=== PATIENT | male | born 1955 | race Caucasian/White ===

== ENCOUNTER 2016-04-22 11:52 | Emergency (ER) | payer OTHER ==
[~2016-04-22] VITALS: Ht 193 cm; Wt 88.5 kg
[~2016-04-22 11:52] MED LIST: CIPRO 500MG TA500 MG PO; LEVSIN 0.1250.125 MG PO; ZOFRAN ODT4 MG PO
--- NOTE | 2016-04-22 12:53 | ED HEADACHE COMPLAINT ---
History of Present Illness General Chief Complaint: Headache Stated Complaint: HEADACHE Source: patient, old records Exam Limitations: no limitations Vital Signs & Intake/Output Vital Signs & Intake/Output Vital Signs Date Time Temp Pulse Resp B/P Pulse O2 O2 Flow FiO2 Ox Delivery Rate 04/22 1445 76 152/92 04/22 1400 152/92 04/22 1335 Room Air 04/22 1334 78 16 168/104 98 Room Air 04/22 1201 98.7 97 18 191/99 99 Room Air Room Air Allergies Coded Allergies: NO KNOWN ALLERGIES (11/11/14) Reconcile Medications Butalb/Acetaminophen/Caffeine (Fioricet 50-300-40 MG Capsule) 50 MG-300 MG-40 MG CAPSULE 1 TAB PO Q6HR PRN HEADACHE Labetalol HCl 100 MG TABLET 1 TAB PO ONCE htn Triage Note: TRIAGE: 61 Y/O MALE PRESENTS C/O "SEVERE HEADACHES" S/P SKIING IN [place]. "I THOUGHT IT COULD HAVE BEEN FROM THE ALTITUDE. I DRANK A TON OF WATER AND THE DEHYDRATION AND CRAMPS WENT AWAY. BUT THE HEADACHE DIDN'T GO AWAY." HEADACHE SINCE SUNDAY. LAST DOSE OF MOTRIN: YESTERDAY. "WITH LIGHTS TURNED OFF, EASIER TO TALK." Triage Nurses Notes Reviewed? yes Onset: Abrupt Duration: day(s): (5), constant, waxing and waning Timing: recent history Quality/Severity: moderate, achy, constant, pressure Severity Numbers: 7 Head Injury Location: global No Modifying Factors: none Associated Symptoms: muscle cramps HPI: 61-year-old male with no medical history presents complaining of intermittent waxing and waning bilateral generalized headache that has been present for the past 5 days after he returned home from [place]. The patient states that while he was there he believes he is getting sick from the altitude difference and drinking and skiing. He states that he was drinking plenty of fluids and taking Advil with improvement in his symptoms. He states that his body cramps and dry mouth have resolved however the headaches persist. There is no recent fall or head trauma. He denies history of similar headaches in the past. He reports positive photosensitivity. He describes the headaches as feeling as though his ears have to pop however they have not. He denies any tinnitus or vision or hearing changes. He denies any neck stiffness or pain no fever no chills no chest pain or shortness of breath. His last dose of Advil was yesterday. He states that it helps for a time however the headaches return. Patient is known to be hypertensive in triage she states he's never been diagnosed with high blood pressure in the past denies any numbness or tingling weakness in his extremities difficulty finding words or speaking (AMADO DALEY) Past History Travel History Traveled to [place] past 21 day No Medical History Any Pertinent Medical History? 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 No (AMADO DALEY) Review of Systems Review of Systems Constitutional: Reports: see HPI. All Other Systems: Reviewed and Negative Comments Review of systems: See HPI, All other systems negative. Constitutional, no chills no fever, no malaise HEENT: No visual changes no sore throat no congestion Cardiovascular: No chest pain , no palpitation Skin,no rashes, no change in skin Respiratory: No dyspnea no cough no sputum no hemoptysis GI: No nausea no vomiting, no diarrhea, no bloating/constipation : No dysuria Muscle skeletal: No joint pain, no joint swelling, no back pain, no neck pain, Neurologic: No numbness no confusion,headache Psych: No stress Heme/endocrine: No bruising no bleeding Immunology: No lymphadenopathy (AMADO DALEY) Physical Exam Physical Exam General Appearance: well developed/nourished, no apparent distress, alert, awake , comfortable Cranial Nerves: normal hearing, normal speech, PERRL Comments: Well-developed well-nourished person in no acute distress HEENT: Normal EENT exam; PERRL, EOMI, no nystagmus. HEAD is atraumatic. moist mucous membranes. No papilledema Neck: Supple, normal range of motion without pain or tenderness Back: Nontender, no CVA tenderness. Full range of motion Cardiovascular: Regular rate and rhythms no murmurs rubs Respiratory: No respiratory distress. Patient speaking in full complete sentences. Breath sounds clear to auscultation bilaterally: NO W/R/R Abdomen: Soft, nontender nondistended, no appreciable organomegaly. Normal bowel sounds. No rebound/guarding Extremity: No edema, full range of motion of extremities, normal and equal pulses bilaterally, 5 out of 5 strength noted to bilateral upper and lower extremities Neuro: Alert oriented x3, motor sensory normal, cranial nerves II through XII grossly intact. There were no obvious focal neurologic abnormalities. Skin: No appreciable rash on exposed skin, skin is warm and dry. Psych: Mood and affect is normal, memory and judgment is normal. Core Measures Severe Sepsis Present: No Septic Shock Present: No (COLETTE SONG,AMADO) Progress Differential Diagnosis: cluster MCKEON, encephalitis, IC mass/tumor, intracranial Hem., meningitis, migraine MCKEON, musculoskeletal pain, sinusitis, subarach. Hem., tension MCKEON, temporal arteritis, altitude sickness, htn, tick born illness Plan of Care: Orders Procedure Date/time Status COMPREHENSIVE METABOLIC PANEL 04/22 1259 Complete CBC WITHOUT DIFFERENTIAL 04/22 1259 Complete Current Medications Sig/Dominic Start time Last Medication Dose Stop Time Status Admin Labetalol HCl 10 MG ONCE ONE 04/22 1345 CAN (Trandate) 04/22 1346 Laboratory Tests 04/22/16 1315: Anion Gap 7, Estimated GFR > 60, BUN/Creatinine Ratio 15.6, Glucose 108 H, Calcium 9.7, Total Bilirubin 0.9, AST 25, ALT 37, Alkaline Phosphatase 39, Total Protein 7.7, Albumin 4.6, Globulin 3.1, Albumin/Globulin Ratio 1.5, CBC w Diff NO MAN DIFF REQ, RBC 4.91, MCV 96.3 H, MCH 32.3 H, RDW 12.6, MPV 7.5, Gran % 66.6, Lymphocytes % 23.5, Monocytes % 9.1, Eosinophils % 0.4, Basophils % 0.4, Absolute Granulocytes 4.4, Absolute Lymphocytes 1.5, Absolute Monocytes 0.6, Absolute Eosinophils 0, Absolute Basophils 0, PUBS MCHC 33.6 The patient states that his blood pressure normally ranges in the 130s to 140s. He was diagnosed with high blood pressure however he was never prescribed medication and they were watching it with dietary changes and exercise. Case was discussed with Dr. Ya patient is medicated with labetalol 10 mg IV Blood pressure recheck was 152/64 prior to being minutes treated with labetalol 10 mg IV. Medications switched to by mouth will continue to monitor he reports that it has improved with Toradol 04/22/2016 2:38:46 PM discussed the patient at length all his lab results there are no meningeal signs afebrile with a white count is been no recent tick or insect bite. Symptoms have been waxing and waning in intensity however improved with Advil at home old records reviewed show the patient has been seen in the past for headaches requiring IV morphine which I discussed the option with the patient getting stronger IV medication which she is declining. The patient does not have a primary care physician however patient will be provided for the same. He has a home blood pressure cuff at home and discussed with him the importance of checking twice a day and recording these numbers at home to return immediately if he has persistently elevated blood pressures once again worsening headache despite medication or any other concerns. He is feeling better at this time. Prescription for labetalol and FIORICET provided. Advised close follow- up. He will return anytime sooner with any concerns she feels comfortable at this plan (AMADO DALEY) Departure Departure Time of Disposition: 0 Disposition: HOME OR SELF CARE Condition: Stable Clinical Impression Primary Impression: HTN (hypertension) Secondary Impressions: Headache Referrals: PATIENT HAS NO PRIMARY CARE DR (PCP/Family) KIKI CARCAMO MD Additional Instructions: Follow-up with primary care physician Dr. carcamo on sunday. fioricet for your headache. labetalol as directed continue checking her blood pressures at home and writing these numbers down. Return immediately if your headaches persist or worsen despite medication or he have any other concerns. These prescriptions were sent to [facility] in [place]. Departure Forms: Customer Survey General Discharge Information Prescriptions: Current Visit Scripts Labetalol HCl 1 TAB PO ONCE #30 TAB Butalb/Acetaminophen/Caffeine (Fioricet 50-300-40 MG Capsule) 1 TAB PO Q6HR PRN HEADACHE #12 TAB (AMADO DALEY) PA/ELECTRIC APPLIANCE INSTALLER Co-Sign Statement Statement: ED Attending supervision documentation- [X] I saw and evaluated the patient. I have also reviewed all the pertinent lab results and diagnostic results. I agree with the findings and the plan of care as documented in the PA's/ELECTRIC APPLIANCE INSTALLER's documentation. [X] I have reviewed the ED Record and agree with the PA's/ELECTRIC APPLIANCE INSTALLER's documentation. [] Additions or exceptions (if any) to the PAs/ELECTRIC APPLIANCE INSTALLER's note and plan are summarized below: [] (TOBI HERNANDEZ,JUN Rojas)
[2016-04-22 13:41] LABS: ABSOLUTE BASOPHIL COUNT 0 /CUMM (0.0-0.2); ABSOLUTE EOSINOPHIL COUNT 0 /CUMM (0.0-0.7); ABSOLUTE GRANULOCYTE CT 4.4 /CUMM (1.4-6.5); ABSOLUTE LYMPH COUNT 1.5 /CUMM (1.2-3.4); ABSOLUTE MONOCYTE COUNT 0.6 /CUMM (0.10-0.60); BASOPHIL % 0.4 % (0.0-2.0); EOSINOPHIL % 0.4 % (0-5); GRANULOCYTE % 66.6 % (42.2-75.2); HEMATOCRIT 47.3 % (42-52); MEAN CORPUSCULAR HGB 32.3 PG (27.0-31.0); MEAN CORPUSCULAR HGB CONC 33.6 G/DL (33.0-37.0); MEAN CORPUSCULAR VOLUME 96.3 FL (80.0-94.0); MEAN PLATELET VOLUME 7.5 FL (7.4-10.4); PLATELET COUNT 288 /CUMM (130-400); RBC DISTRIBUTION WIDTH 12.6 % (11.5-14.5); RED BLOOD CELL CT 4.91 /CUMM (4.70-6.10); WHITE BLOOD CELL COUNT 6.6 /CUMM (4.8-10.8)
[2016-04-22] MEDS ORDERED: FIORICET 50-301 EACH PO (14:33)
[2016-04-22] MEDS ORDERED: LABETALOL HCL100 M1 PO (14:33)
[2016-04-22 14:45] VITALS: BP 152/92
== END 2016-04-22 14:46 ==
LOC: ERH 11:52
PROVIDERS: Physician Assistant Medical
DX: I10 Essential (primary) hypertension (principal)
CPT/HCPCS: 96361; 96374; 96375; J1200; J1885